=== PATIENT | female | born 1945 | race Native Hawaiian/Other Pacific Islander ===

== ENCOUNTER 2016-07-13 20:43 | Emergency (ER) | payer OTHER ==
[~2016-07-13] VITALS: Ht 160 cm; Wt 61.2 kg
[~2016-07-13 20:43] MED LIST: ALPR0.2566 PO; ARICEPT ODT10 MG OR; CELEXA10 MG PO; GLIP5TAB76 PO; HYDR25TA60 PO; HYZAAR1 TA1 PO; LISI20TA11 PO; LORAZEPAM1 MG PO; LORCET 5-325 MG1 TAB PO; METFTAB PO; NAMENDA10 MG OR; ZOCOR80 MG PO
[2016-07-13] MEDS ORDERED: FAMOTIDINE20 MG PO (21:51)
[2016-07-13] MEDS ORDERED: SIMV20TA2 PO (21:57)
[2016-07-13] MEDS ORDERED: COZAAR25 MG PO (22:00)
[2016-07-13 23:15] LABS: PLATELET COUNT 318 K/uL (152-353)
[2016-07-13 23:26] LABS: POTASSIUM 3.9 mmol/L (3.6-5.2)
[2016-07-13 23:59] VITALS: BP 144/76; TEMP 98.6
== END 2016-07-14 00:02 | disposition home or self-care (01) ==
LOC: ED 20:43
DX: F41.8 Other specified anxiety disorders (principal); E11.9 Type 2 diabetes mellitus without complications
CPT/HCPCS: 36415; 80053; 81000; 83036; 85027; 99283

== ENCOUNTER 2017-02-24 10:51 | Outpatient (CLI) | payer OTHER ==
[~2017-02-24 10:51] MED LIST changes: +COZAAR25 MG PO; +FAMOTIDINE20 MG PO; -NAMENDA10 MG OR; +NAMENDA10 MG PO; +SIMV20TA2 PO
== END 2017-02-24 12:00 | disposition home or self-care (01) ==
LOC: MAMMO 10:51
DX: Z12.31 Encounter for screening mammogram for malignant neoplasm of breast (principal); Z13.820 Encounter for screening for osteoporosis; M85.88 Other specified disorders of bone density and structure, other site

== ENCOUNTER 2017-03-13 13:27 | Emergency (ER) | payer OTHER ==
[~2017-03-13] VITALS: Ht 160 cm; Wt 60.8 kg
[2017-03-13] MEDS ORDERED: PROTONIX20 MG PO (13:38)
[2017-03-13] MEDS ORDERED: TRICOR145 M1 PO (13:40)
[2017-03-13] MEDS ORDERED: ABACAVIR SULFAT1 TAB PO (13:41)
[2017-03-13] MEDS ORDERED: ONDA4TAB3 PO (13:45)
[2017-03-13 15:29] LABS: PLATELET COUNT 349 K/uL (152-353)
[2017-03-13 15:43] LABS: POTASSIUM 3.7 mmol/L (3.6-5.2); SODIUM 138 mmol/L (136-145)
[2017-03-13 18:30] VITALS: BP 120/68; TEMP 98.4
== END 2017-03-13 18:34 | disposition home or self-care (01) ==
LOC: ED 13:27
PROVIDERS: Emergency Medicine
DX: K80.80 Other cholelithiasis without obstruction (principal); K44.9 Diaphragmatic hernia without obstruction or gangrene
CPT/HCPCS: 36415; 80053; 81000; 82150; 82553; 83690; 84484; 85027; 86318; 99283; Q9963

== ENCOUNTER 2017-03-18 08:06 | Observation (INO) | payer OTHER ==
[2017-03-18] VITALS (8 sets, daily range): BP systolic 123–142; BP diastolic 49–68; TEMP 97.8–98.3; Ht 160 cm; Wt 82.2 kg
[~2017-03-18] VITALS: Ht 160 cm; Wt 82.2 kg
[~2017-03-18 08:06] MED LIST changes: +ABACAVIR SULFAT1 TAB PO; +ONDA4TAB3 PO; +PROTONIX20 MG PO; +TRICOR145 M1 PO
[2017-03-18] MEDS ORDERED: DONEPEZIL HCL23 MG PO (18:18)
[2017-03-19] VITALS: BP 116/64; TEMP 99.3
[2017-03-19 04:00] VITALS: BP 114/55; TEMP 99.1
[2017-03-19 06:34] LABS: POTASSIUM 4.7 mmol/L (3.6-5.2)
[2017-03-19 06:56] LABS: PLATELET COUNT 268 K/uL (152-353)
[2017-03-19 08:00] VITALS: BP 103/46; TEMP 98.3
[2017-03-19 12:00] VITALS: BP 106/54; TEMP 98.3
== END 2017-03-19 12:15 | disposition home or self-care (01) ==
LOC: OR 08:06 → MED/SURG 14:48
PROVIDERS: Family Medicine; ADMIT Student in an Organized Health Care Education/Training Program
PROC: 0FT44ZZ Resection of Gallbladder, Percutaneous Endoscopic Approach (ICD-10-PCS; principal; 2017-03-18)
DX: K80.12 Calculus of gallbladder with acute and chronic cholecystitis without obstruction (principal); E11.9 Type 2 diabetes mellitus without complications; I10 Essential (primary) hypertension; R19.7 Diarrhea, unspecified
CPT/HCPCS: 36415; 80053; 82948; 85027; 93005; 94760; 96361; 96365; 96366; 99220; G0378; J0330; J0690; J1100; J1170; J2001; J2250; J2310; J2405; J2704; J2710; J2765; J3010; J3490; S0028

== ENCOUNTER 2017-04-05 15:10 | Emergency (ER) | payer OTHER ==
[~2017-04-05] VITALS: Ht 160 cm; Wt 60.8 kg
[~2017-04-05 15:10] MED LIST changes: +DONEPEZIL HCL23 MG PO
[2017-04-05 15:59] LABS: PLATELET COUNT 431 K/uL (152-353)
[2017-04-05 16:04] LABS: POTASSIUM 4.6 mmol/L (3.6-5.2)
[2017-04-05 19:25] VITALS: BP 158/62; TEMP 98.5
== END 2017-04-05 19:27 | disposition home or self-care (01) ==
LOC: ED 15:10
DX: K59.09 Other constipation (principal); R10.84 Generalized abdominal pain; K56.41 Fecal impaction
CPT/HCPCS: 80053; 85027; 99283

== ENCOUNTER 2017-06-20 20:07 | Emergency (ER) | payer OTHER ==
[~2017-06-20] VITALS: Ht 160 cm; Wt 61.2 kg
[2017-06-20 20:22] VITALS: TEMP 98.5
[2017-06-20 21:11] LABS: PLATELET COUNT 342 K/uL (152-353)
[2017-06-20 21:22] LABS: POTASSIUM 3.9 mmol/L (3.6-5.2); SODIUM 135 mmol/L (136-145)
[2017-06-20 23:07] VITALS: BP 162/67
[2017-06-27] MEDS ORDERED: CITA20TA2 PO (13:04)
[2017-06-27] MEDS ORDERED: FLUC150T PO (13:06)
[2017-06-27] MEDS ORDERED: LACTSYP31 PO (13:07)
[2017-06-27] MEDS ORDERED: OXYB5TAB56 PO (13:09)
[2017-06-27] MEDS ORDERED: HYDR5TAB9 PO (13:10)
[2017-06-27] MEDS ORDERED: RISP0.5T2 PO (13:10)
[2017-06-27] MEDS ORDERED: SIMV40TA57 PO (13:11)
[2017-06-27] MEDS ORDERED: MACROBID100 MG PO (13:12)
[2017-06-27] MEDS ORDERED: CIPRO500 MG PO (13:13)
[2017-06-27] MEDS ORDERED: DONE5TAB PO (13:13)
[2017-06-27] MEDS ORDERED: DICL50TA PO (13:21)
[2017-06-27] MEDS ORDERED: CLARITIN10 MG PO (13:22)
[2017-07-09] MEDS ORDERED: NAMENDA10 MG PO (17:32)
[2017-07-09] MEDS ORDERED: AMOX875T8 PO (17:32)
[2017-07-09] MEDS ORDERED: QUET25TA2 PO ×2 (17:33)
[2017-07-09] MEDS ORDERED: ESCI10TA PO (17:33)
== END 2017-06-20 23:08 | disposition home or self-care (01) ==
LOC: ED 20:07
PROVIDERS: Specialist
DX: R07.89 Other chest pain (principal); R42 Dizziness and giddiness; Z91.81 History of falling; R06.09 Other forms of dyspnea
CPT/HCPCS: 36415; 36600; 80048; 82550; 82805; 83880; 84484; 85027; 99284

== ENCOUNTER 2017-11-03 19:38 | Emergency (ER) | payer OTHER ==
[~2017-11-03] VITALS: Ht 160 cm; Wt 62.6 kg
[~2017-11-03 19:38] MED LIST changes: +AMOX875T8 PO; +CIPRO500 MG PO; +CITA20TA2 PO; +CLARITIN10 MG PO; +DICL50TA PO; +DONE5TAB PO; +ESCI10TA PO; +FLUC150T PO; +HYDR5TAB9 PO; +LACTSYP31 PO; +MACROBID100 MG PO; +OXYB5TAB56 PO; +QUET25TA2 PO; +RISP0.5T2 PO; +SIMV40TA57 PO
[2017-11-03 21:58] LABS: PLATELET COUNT 367 K/uL (152-353)
[2017-11-03 23:30] VITALS: BP 138/76; TEMP 98.3
== END 2017-11-03 23:33 | disposition home or self-care (01) ==
LOC: ED 19:38
DX: E86.0 Dehydration (principal)
CPT/HCPCS: 36415; 80053; 81000; 85027; 96360; 99284

== ENCOUNTER 2017-11-13 09:39 | Observation (INO) | payer OTHER ==
[~2017-11-13] VITALS: Ht 157.5 cm; Wt 59.6 kg
[2017-11-13] MEDS ORDERED: CEFDINIR300 MG PO (11:01)
[2017-11-13] MEDS ORDERED: CETIRIZINE10 MG PO (11:02)
[2017-11-13] MEDS ORDERED: MEMANTINE HCL10 MG PO (11:02)
[2017-11-13] MEDS ORDERED: QUET25TA2 PO (11:03)
[2017-11-13] MEDS ORDERED: SIMV40TA57 (11:03)
[2017-11-13 12:04] LABS: PLATELET COUNT 368 K/uL (152-353)
[2017-11-13 12:36] VITALS: BP 130/52; TEMP 98.3; Ht 157.5 cm; Wt 59.6 kg
[2017-11-13 12:49] LABS: POTASSIUM 3.7 mmol/L (3.6-5.2)
[2017-11-13 14:15] LABS: PARTIAL THROMBOPLASTIN TIME 24.1 SECONDS (24.5-33.6)
[2017-11-13 16:00] VITALS: BP 130/52; TEMP 98.3
[2017-11-13 20:15] VITALS: BP 140/63; TEMP 98.3
[2017-11-14 00:17] VITALS: BP 155/69; TEMP 98.2
[2017-11-14 04:26] VITALS: BP 176/83; TEMP 97.7
[2017-11-14 05:35] LABS: PLATELET COUNT 375 K/uL (152-353)
[2017-11-14 05:53] LABS: POTASSIUM 3.8 mmol/L (3.6-5.2)
--- NOTE | 2017-11-14 07:15 | NUR ---
PT DAUGHTER CAME TO NURSES STATION TO REPORT HER MAMA'S GLASSES MISSING. DAUGHTER STATED SHE KNEW HER MAMA HAD THEM ON LAST NIGHT WHEN SHE LEFT AND NOW THEY CANNOT FIND THEM SHE HAD CHECKED THE ROOM AND THE BED. DAUGHTER REQUESTED THAT WE CHECK WITH DIETARY TO SEE IF MAYBED SHE LEFT THEM ON HER TRAY LAST NIGHT. DIETARY WAS CALLED AND STATED THEY WERE NOT HERE LAST NIGHT BUT THEY WOULD CHECK WITH THE EVENING CREW TO SEE IF ANYONE MAY HAVE FOUND THEM. CHARGE NURSE NOTIFIED.
[2017-11-14 08:00] VITALS: BP 155/65; TEMP 97.8
[2017-11-14 12:00] VITALS: BP 129/70; TEMP 98
--- NOTE | 2017-11-14 13:50 | NUR ---
D/C ORDER PUT IN BY DEREJE [employer] MECHANIC. ATTEMPTED TO CALL PTS DAUGHTER AND SON TO COME [employer]IVE PICKER PT BUT NO ANSWER WILL KEEP TRYING.
--- NOTE | 2017-11-14 16:18 | NUR ---
IV D/C'D. D/C INSTRUCTIONS GIVEN TO PT AND DAUGHTER. FU WITH [facility]J [facility]CLAY IN 3-5 DAYS. DAUGHTER HAS NO FUTHER QUESTIONS. PT WHEELED OUT V/A WC AT THIS TIME TO DAUGHTERS VEHICLE. NO PROBLEMS NOTED.
== END 2017-11-14 16:10 | disposition home or self-care (01) ==
LOC: MED/SURG 09:39
DX: R41.82 Altered mental status, unspecified (principal); I95.89 Other hypotension; I10 Essential (primary) hypertension; E78.4 Other hyperlipidemia; F03.90 Unspecified dementia, unspecified severity, without behavioral disturbance, psychotic disturbance, mood disturbance, and anxiety; E11.9 Type 2 diabetes mellitus without complications; D64.9 Anemia, unspecified
CPT/HCPCS: 80053; 81000; 82948; 83735; 85027; 85610; 85730; 93005; 96365; 99220; G0378; G0379

== ENCOUNTER 2018-11-23 20:56 | Emergency (ER) | payer OTHER ==
[~2018-11-23] VITALS: Ht 157.5 cm; Wt 64.0 kg
[~2018-11-23 20:56] MED LIST changes: +CEFDINIR300 MG PO; +CETIRIZINE10 MG PO; +MEMANTINE HCL10 MG PO; +SIMV40TA57
[2018-11-23 22:48] VITALS: BP 148/70; TEMP 97.3
== END 2018-11-23 22:58 | disposition home or self-care (01) ==
LOC: ED 20:56
DX: S43.491A Other sprain of right shoulder joint, initial encounter (principal); S40.011A Contusion of right shoulder, initial encounter; W06.XXXA Fall from bed, initial encounter; Y92.89 Other specified places as the place of occurrence of the external cause
CPT/HCPCS: 99282

== ENCOUNTER 2019-03-22 19:20 | Emergency (ER) | payer OTHER ==
[~2019-03-22] VITALS: Ht 160 cm; Wt 63.5 kg
[2019-03-22 19:31] VITALS: TEMP 97
[2019-03-22 20:47] LABS: PLATELET COUNT 281 K/uL (152-353)
[2019-03-22 21:10] LABS: POTASSIUM 4.6 mmol/L (3.6-5.2)
[2019-03-22] MEDS ORDERED: AZIT250T3 PO (22:14)
[2019-03-22] MEDS ORDERED: OLMESARTAN MEDO20 MG PO (22:14)
[2019-03-22 23:10] VITALS: BP 143/54
== END 2019-03-22 23:10 | disposition short-term general hospital (02) ==
LOC: ED 19:20
PROVIDERS: Emergency Medicine
DX: E11.10 Type 2 diabetes mellitus with ketoacidosis without coma (principal); Z79.4 Long term (current) use of insulin; D64.89 Other specified anemias; R06.02 Shortness of breath
CPT/HCPCS: 36415; 80053; 83735; 83880; 84484; 85027; 85379; 87502; 87651; 93005; 94664; 96365; 96375; 99285; J1815; J3490

== ENCOUNTER 2019-07-25 10:35 | Emergency (ER) | payer OTHER ==
[~2019-07-25] VITALS: Ht 160 cm; Wt 68.0 kg
[~2019-07-25 10:35] MED LIST changes: +AZIT250T3 PO; +OLMESARTAN MEDO20 MG PO
[2019-07-25 10:50] VITALS: TEMP 98
[2019-07-25 14:06] VITALS: BP 132/71
== END 2019-07-25 14:06 | disposition home or self-care (01) ==
LOC: ED 10:35
DX: M54.5 Low back pain (principal); G89.29 Other chronic pain; W18.39XA Other fall on same level, initial encounter; Y92.89 Other specified places as the place of occurrence of the external cause
CPT/HCPCS: 96372; 99283; J1885

== ENCOUNTER 2019-09-07 09:42 | Outpatient (CLI) | payer OTHER ==
[2019-09-07 10:14] LABS: PLATELET COUNT 400 K/uL (152-353)
[2019-09-07 10:43] LABS: POTASSIUM 3.6 mmol/L (3.6-5.2)
== END 2019-09-07 19:09 | disposition home or self-care (01) ==
LOC: LABW 09:42
PROVIDERS: Registered Nurse
DX: E11.9 Type 2 diabetes mellitus without complications (principal); I10 Essential (primary) hypertension; R53.83 Other fatigue; E78.2 Mixed hyperlipidemia; E55.9 Vitamin D deficiency, unspecified; E53.8 Deficiency of other specified B group vitamins
CPT/HCPCS: 36415; 80053; 80061; 81000; 82306; 82607; 82746; 83036; 84436; 84443; 85027

== ENCOUNTER 2020-08-23 09:48 | Outpatient (CLI) | payer OTHER | END 2020-08-23 19:19 | disposition home or self-care (01) | LOC: RAD 09:48 | PROVIDERS: ATTEND Nurse Practitioner Family | DX: R09.89 Other specified symptoms and signs involving the circulatory and respiratory systems (principal) ==

== ENCOUNTER 2021-01-27 15:14 | Emergency (ER) | payer OTHER ==
[~2021-01-27] VITALS: Ht 160 cm; Wt 68.0 kg
[2021-01-27 16:46] LABS: PLATELET COUNT 433 K/uL (152-353)
[2021-01-27 16:50] LABS: POTASSIUM 3.7 mmol/L (3.6-5.2); SODIUM 137 mmol/L (136-145)
[2021-01-27 17:10] LABS: PARTIAL THROMBOPLASTIN TIME 24.2 SECONDS (24.5-33.6)
[2021-01-27 21:00] VITALS: BP 124/61; TEMP 98.4
== END 2021-01-27 21:09 | disposition home or self-care (01) ==
LOC: ED 15:14
PROVIDERS: Family Medicine
PROC: 0HQ0XZZ Repair Scalp Skin, External Approach (ICD-10-PCS; principal; 2021-01-27)
DX: S00.83XA Contusion of other part of head, initial encounter (principal); S01.81XA Laceration without foreign body of other part of head, initial encounter; J18.9 Pneumonia, unspecified organism; W01.198A Fall on same level from slipping, tripping and stumbling with subsequent striking against other object, initial encounter; Y92.89 Other specified places as the place of occurrence of the external cause; Z20.822 Contact with and (suspected) exposure to COVID-19
CPT/HCPCS: 80053; 82550; 84484; 85027; 85610; 85730; 87635; 90471; 90715; 93005; 96360; 96375; 99284; J0696; J1885; U0003

== ENCOUNTER 2021-03-31 17:27 | Emergency (ER) | payer OTHER ==
[~2021-03-31] VITALS: Ht 160 cm; Wt 68.0 kg
[2021-03-31 18:27] LABS: PLATELET COUNT 390 K/uL (152-353)
[2021-03-31 18:36] LABS: POTASSIUM 3.2 mmol/L (3.6-5.2)
[2021-03-31 20:10] VITALS: BP 150/79; TEMP 98.4
== END 2021-03-31 20:10 | disposition home or self-care (01) ==
LOC: ED 17:27
PROVIDERS: Family Medicine
DX: K56.41 Fecal impaction (principal); K59.09 Other constipation; E87.6 Hypokalemia
CPT/HCPCS: 36415; 80053; 82150; 83690; 85027; 99284

== ENCOUNTER 2022-03-13 10:10 | Outpatient (CLI) | payer OTHER | END 2022-03-13 19:19 | disposition home or self-care (01) | LOC: MAMMO 10:10 | PROVIDERS: ATTEND Registered Nurse | DX: Z12.31 Encounter for screening mammogram for malignant neoplasm of breast (principal); Z13.820 Encounter for screening for osteoporosis; N95.8 Other specified menopausal and perimenopausal disorders ==

== ENCOUNTER 2022-04-30 09:42 | Outpatient (CLI) | payer OTHER ==
[2022-04-30 10:43] LABS: PLATELET COUNT 484 K/uL (152-353)
[2022-04-30 10:55] LABS: POTASSIUM 3.5 mmol/L (3.6-5.2)
== END 2022-04-30 20:33 | disposition home or self-care (01) ==
LOC: LABW 09:42
PROVIDERS: ATTEND Student in an Organized Health Care Education/Training Program
DX: N28.89 Other specified disorders of kidney and ureter (principal); D63.1 Anemia in chronic kidney disease; N18.9 Chronic kidney disease, unspecified; E11.9 Type 2 diabetes mellitus without complications; E79.0 Hyperuricemia without signs of inflammatory arthritis and tophaceous disease; R80.8 Other proteinuria; D50.8 Other iron deficiency anemias; R94.6 Abnormal results of thyroid function studies; E55.9 Vitamin D deficiency, unspecified; Z79.899 Other long term (current) drug therapy; E78.2 Mixed hyperlipidemia; I12.9 Hypertensive chronic kidney disease with stage 1 through stage 4 chronic kidney disease, or unspecified chronic kidney disease
CPT/HCPCS: 36415; 80053; 80074; 81002; 82306; 82570; 83036; 83735; 83970; 84100; 84156; 84165; 84550; 85027; 86037; 86160; 86592; 86701; 86702; 87389

== ENCOUNTER 2022-11-04 08:22 | Outpatient (CLI) | payer OTHER ==
[2022-11-04 08:45] LABS: PLATELET COUNT 456 K/uL (152-353)
[2022-11-04 09:29] LABS: POTASSIUM 3.6 mmol/L (3.6-5.2)
== END 2022-11-04 19:10 | disposition home or self-care (01) ==
LOC: LABW 08:22
PROVIDERS: ATTEND Student in an Organized Health Care Education/Training Program
DX: N28.89 Other specified disorders of kidney and ureter (principal); D63.1 Anemia in chronic kidney disease; N18.9 Chronic kidney disease, unspecified; E11.9 Type 2 diabetes mellitus without complications; E79.0 Hyperuricemia without signs of inflammatory arthritis and tophaceous disease; R80.8 Other proteinuria; E55.9 Vitamin D deficiency, unspecified; D50.8 Other iron deficiency anemias; Z79.899 Other long term (current) drug therapy; I12.9 Hypertensive chronic kidney disease with stage 1 through stage 4 chronic kidney disease, or unspecified chronic kidney disease
CPT/HCPCS: 36415; 80053; 81002; 82306; 82570; 83735; 83970; 84100; 84156; 84550; 85027

== ENCOUNTER 2022-11-29 19:45 | Observation (INO) | payer OTHER ==
[~2022-11-29] VITALS: Ht 160 cm; Wt 54.4 kg
[2022-11-29] VITALS (10 sets, daily range): BP systolic 100–157; BP diastolic 61–81; TEMP 98.5
[2022-11-29 20:36] LABS: POTASSIUM 3.7 mmol/L (3.6-5.2)
[2022-11-29 21:10] LABS: PLATELET COUNT 414 K/uL (152-353)
[2022-11-30 02:01] VITALS: BP 134/66; TEMP 98.5; Ht 160 cm; Wt 54.4 kg
[2022-11-30 04:00] VITALS: BP 164/72; TEMP 98
[2022-11-30 07:27] LABS: PLATELET COUNT 383 K/uL (152-353)
[2022-11-30 07:55] VITALS: BP 152/70; TEMP 98
[2022-11-30 07:55] LABS: POTASSIUM 3.4 mmol/L (3.6-5.2)
[2022-11-30] MEDS ORDERED: ROSU10TA PO (11:10)
[2022-11-30] MEDS ORDERED: TRICOR145 M1 PO (11:12)
[2022-11-30] MEDS ORDERED: ESCI20TA PO (11:13)
[2022-11-30] MEDS ORDERED: CYAN10009 IM (11:15)
[2022-11-30] MEDS ORDERED: VITAMIN D50000 UNIT PO (11:16)
[2022-11-30] MEDS ORDERED: METFORMIN HYDR850 MG PO (11:17)
[2022-11-30] MEDS ORDERED: FAMO20TA4 PO (11:23)
[2022-11-30] MEDS ORDERED: LISI5TAB10 PO (11:24)
[2022-11-30 12:00] VITALS: BP 175/73; TEMP 98.3
[2022-11-30 16:00] VITALS: BP 155/76; TEMP 98.2
== END 2022-11-30 17:55 | disposition home or self-care (01) ==
LOC: ED 19:45 → MED/SURG 22:20
PROVIDERS: Family Medicine; ADMIT Nurse Practitioner Family; ATTEND Internal Medicine
DX: R11.2 Nausea with vomiting, unspecified (principal); R34 Anuria and oliguria; E86.0 Dehydration; E87.1 Hypo-osmolality and hyponatremia; E87.6 Hypokalemia; F03.90 Unspecified dementia, unspecified severity, without behavioral disturbance, psychotic disturbance, mood disturbance, and anxiety; E78.49 Other hyperlipidemia; E53.8 Deficiency of other specified B group vitamins; E55.9 Vitamin D deficiency, unspecified; K21.9 Gastro-esophageal reflux disease without esophagitis; E11.9 Type 2 diabetes mellitus without complications; I10 Essential (primary) hypertension
CPT/HCPCS: 36415; 51702; 80048; 80053; 81000; 83735; 85027; 93005; 96360; 96361; 99221; 99284; G0378; J2405; J3475; Q9963

== ENCOUNTER 2022-12-04 05:37 | Emergency (ER) | payer OTHER ==
[~2022-12-04] VITALS: Ht 160 cm; Wt 54.4 kg
[~2022-12-04 05:37] MED LIST changes: +CYAN10009 IM; +ESCI20TA PO; +FAMO20TA4 PO; +LISI5TAB10 PO; +METFORMIN HYDR850 MG PO; +ROSU10TA PO; +VITAMIN D50000 UNIT PO
[2022-12-04 05:42] VITALS: TEMP 98.6
[2022-12-04 06:00] LABS: PLATELET COUNT 510 K/uL (152-353)
[2022-12-04 06:06] LABS: POTASSIUM 3.9 mmol/L (3.6-5.2); SODIUM 139 mmol/L (136-145)
[2022-12-04 09:00] VITALS: BP 135/63
== END 2022-12-04 09:00 | disposition home or self-care (01) ==
LOC: ED 05:37
PROVIDERS: Family Medicine
DX: N39.0 Urinary tract infection, site not specified (principal); E86.0 Dehydration
CPT/HCPCS: 36415; 80053; 81000; 82550; 83690; 83735; 84484; 85027; 87077; 87086; 87088; 87186; 93005; 96361; 96365; 99284; J0696

== ENCOUNTER 2022-12-20 12:46 | Observation (INO) | payer OTHER ==
[~2022-12-20] VITALS: Ht 160 cm; Wt 55.0 kg
[2022-12-20 12:46] VITALS: TEMP 98.5
[~2022-12-20 12:46] MED LIST changes: -DONE5TAB PO; +DONEPEZIL HYDRO10 MG PO
[2022-12-20 13:27] LABS: PLATELET COUNT 455 K/uL (152-353)
[2022-12-20 13:30] VITALS: BP 147/64
[2022-12-20 13:31] LABS: POTASSIUM 4.3 mmol/L (3.6-5.2)
[2022-12-20 14:30] VITALS: BP 146/61
[2022-12-20 15:30] VITALS: BP 143/70
[2022-12-20 16:25] VITALS: BP 141/74; TEMP 98.6; Ht 160 cm; Wt 55.0 kg
[2022-12-20] MEDS ORDERED: MEGESTROL400 MG/10 PO (17:38)
[2022-12-20 20:07] VITALS: BP 151/53; TEMP 98.7
[2022-12-21] VITALS: BP 116/50; TEMP 98.8
[2022-12-21 03:24] LABS: PLATELET COUNT 418 K/uL (152-353)
[2022-12-21 03:25] LABS: POTASSIUM 3.9 mmol/L (3.6-5.2)
[2022-12-21 04:00] VITALS: BP 145/79; TEMP 98.5
[2022-12-21 07:55] VITALS: BP 137/65; TEMP 97.9
[2022-12-21 12:00] VITALS: BP 149/58; TEMP 98.2
[2022-12-21 15:57] VITALS: BP 125/65; TEMP 98.6
[2022-12-21 20:00] VITALS: BP 140/62; TEMP 98.9
[2022-12-22] VITALS (7 sets, daily range): BP systolic 124–157; BP diastolic 47–73; TEMP 98.1–98.7
[2022-12-22 08:03] LABS: PLATELET COUNT 420 K/uL (152-353)
[2022-12-22 08:08] LABS: POTASSIUM 3.8 mmol/L (3.6-5.2)
[2022-12-23 03:47] VITALS: BP 169/69; TEMP 98.1
[2022-12-23 05:07] LABS: PLATELET COUNT 362 K/uL (152-353)
[2022-12-23 05:15] LABS: POTASSIUM 3.7 mmol/L (3.6-5.2)
[2022-12-23 08:00] VITALS: BP 110/74; TEMP 96.7
[2022-12-23 11:57] VITALS: BP 153/60; TEMP 98
[2022-12-23 16:04] VITALS: BP 121/64; TEMP 98.4
[2022-12-23 20:00] VITALS: BP 120/43; TEMP 98.8
[2022-12-23 23:35] VITALS: BP 134/45; TEMP 98.2
[2022-12-24 03:31] VITALS: BP 135/44; TEMP 97.9
[2022-12-24 08:00] VITALS: BP 144/54; TEMP 97.5
[2022-12-24 12:00] VITALS: BP 135/63; TEMP 97.3
== END 2022-12-24 15:37 | disposition other institution (70) ==
LOC: ED 12:46 → MED/SURG 15:17
PROVIDERS: Family Medicine; ADMIT Internal Medicine Endocrinology, Diabetes & Metabolism; ATTEND Internal Medicine Endocrinology, Diabetes & Metabolism
DX: G92.8 Other toxic encephalopathy (principal); N30.00 Acute cystitis without hematuria; B96.5 Pseudomonas (aeruginosa) (mallei) (pseudomallei) as the cause of diseases classified elsewhere; R41.82 Altered mental status, unspecified; F03.90 Unspecified dementia, unspecified severity, without behavioral disturbance, psychotic disturbance, mood disturbance, and anxiety; F41.8 Other specified anxiety disorders; K21.9 Gastro-esophageal reflux disease without esophagitis; E78.2 Mixed hyperlipidemia; E11.9 Type 2 diabetes mellitus without complications
CPT/HCPCS: 36415; 80048; 80053; 81000; 82948; 83605; 84484; 85027; 87088; 93005; 96361; 96365; 96366; 96367; 99221; 99284; J1956; G0378; J0696